=== PATIENT | male | born 2000 | race Caucasian/White ===

== ENCOUNTER 2021-06-06 10:12 | Emergency (ER) | payer OTHER ==
[2021-06-06 10:59] LABS: BORDETELLA PARAPERTUSSIS Not Detected (Not Detectd); BORDETELLA PERTUSSIS Not Detected (Not Detectd); CHLAMYDIA PNEUMONIAE Not Detected (Not Detectd); CORONAVIRUS HKU1 Not Detected (Not Detectd); CORONAVIRUS NL63 Not Detected (Not Detectd); CORONAVIRUS OC43 Not Detected (Not Detectd); CORONOAVIRUS 229E Not Detected (Not Detectd); HUMAN METAPNEUMOVIRUS Not Detected (Not Detectd); HUMAN RHINOVIRUS/ENTEROVIRUS Not Detected (Not Detectd); INFLUENZA A Not Detected (Not Detectd); INFLUENZA B Not Detected (Not Detectd); MYCOPLASMA PNEUMONIAE Not Detected (Not Detectd); PARAINFLUENZA VIRUS 1 Not Detected (Not Detectd); PARAINFLUENZA VIRUS 2 Not Detected (Not Detectd); PARAINFLUENZA VIRUS 3 Not Detected (Not Detectd); PARAINFLUENZA VIRUS 4 Not Detected (Not Detectd); RESPIRATORY SYNCYTIAL VIRUS Not Detected (Not Detectd)
[2021-06-06 12:22] LABS: SARS-CoV-2 NOT DETECTED (Not Detectd)
== END 2021-06-06 11:30 | disposition home or self-care (01) ==
LOC: ER1 10:12
PROVIDERS: Nurse Practitioner
DX: J06.9 Acute upper respiratory infection, unspecified (principal); F17.290 Nicotine dependence, other tobacco product, uncomplicated; Z88.8 Allergy status to other drugs, medicaments and biological substances; Z20.822 Contact with and (suspected) exposure to COVID-19
CPT/HCPCS: 87633; 99284

== ENCOUNTER 2021-06-16 10:48 | Emergency (ER) | payer OTHER ==
[2021-06-16] MEDS ORDERED: BACITRACIN28.4 GM TP (15:17)
[2021-06-16] MEDS ORDERED: CYCLOBENZAPRINE10 MG PO (15:17)
== END 2021-06-16 15:30 | disposition home or self-care (01) ==
LOC: ER1 10:48
DX: S51.821A Laceration with foreign body of right forearm, initial encounter (principal); S39.012A Strain of muscle, fascia and tendon of lower back, initial encounter; F17.290 Nicotine dependence, other tobacco product, uncomplicated; V49.40XA Driver injured in collision with unspecified motor vehicles in traffic accident, initial encounter; Y92.410 Unspecified street and highway as the place of occurrence of the external cause
CPT/HCPCS: 12001; 72100; 73090; 99283

== ENCOUNTER 2021-08-21 10:21 | Emergency (ER) | payer OTHER ==
[~2021-08-21 10:21] MED LIST: BACITRACIN28.4 GM TP; CYCLOBENZAPRINE10 MG PO
[2021-08-21 11:13] LABS: HEMOGLOBIN 15.4 gm/dl (14.0-17.5); RED BLOOD COUNT 5.53 M/UL (4.20-5.50); WHITE BLOOD COUNT 23.4 K/UL (4.5-11.0)
[2021-08-21 11:31] LABS: BUN/CREATININE RATIO 11 (0-10)
[2021-08-21] MEDS ORDERED: FLAGYL 250 MG250 MG PO (15:44)
[2021-08-21] MEDS ORDERED: CIPRO250 MG PO (15:44)
== END 2021-08-21 16:29 | disposition home or self-care (01) ==
LOC: ER1 10:21 → CDU 15:22 → M/S 08-22 00:58 → CDU 08-22 01:14
PROVIDERS: Emergency Medicine
DX: R10.9 Unspecified abdominal pain (principal); D72.829 Elevated white blood cell count, unspecified; F17.200 Nicotine dependence, unspecified, uncomplicated
CPT/HCPCS: 80053; 81001; 83690; 85025; 96374; 96375; 99285; J2270; J2405; J2543; Q9967

== ENCOUNTER 2021-08-21 20:58 | Inpatient (IN) | payer OTHER ==
[~2021-08-21] VITALS: Ht 193 cm; Wt 83.9 kg
[~2021-08-21 20:58] MED LIST changes: +CIPRO250 MG PO; +FLAGYL 250 MG250 MG PO
[2021-08-22 01:24] LABS: BUN/CREATININE RATIO 13 (0-10)
[2021-08-22 02:24] LABS: HEMOGLOBIN 14.1 gm/dl (14.0-17.5)
[2021-08-22 02:28] LABS: RED BLOOD COUNT 4.8 M/UL (4.20-5.50); WHITE BLOOD COUNT 14.6 K/UL (4.5-11.0)
[2021-08-22 02:43] LABS: BUN/CREATININE RATIO 13 (0-10)
[2021-08-23 05:06] LABS: HEMOGLOBIN 13.5 gm/dl (14.0-17.5); RED BLOOD COUNT 4.64 M/UL (4.20-5.50); WHITE BLOOD COUNT 13.3 K/UL (4.5-11.0)
[2021-08-23 05:46] LABS: BUN/CREATININE RATIO 9 (0-10)
[2021-08-23] MEDS ORDERED: METRONIDAZOLE250 MG PO (10:08)
[2021-08-23] MEDS ORDERED: LEVOFLOXACIN500 MG PO (10:08)
--- NOTE | 2021-08-23 12:22 | NUR ---
UPON DISCHARGE WITH THE PT, EDUCATED THE PT ON THE DANGERS OF ALCOHOL WITH METRONIDAZOLE AND THAT THE PT SHOULD NOT TAKE THE MEDICATION FOR AT LEAST 3 DAYS AFTER HE COMPLETES THE ANTIBIOTIC. PT VOCALIZED THAT HE WOULD NOT BE TAKING THIS MEDICATION AND WAS PLANNING ON GOING HOME TO DRINK. EXPLAINED TO THE PT TO RETURN TO THE HOSPITAL WITH ANY ABDOMINAL PAIN AND TO REFRAIN FROM DRINKING FOR THREE DAYS.
== END 2021-08-23 12:33 | disposition home or self-care (01) | DRG 392 ==
LOC: ER1 20:58 → M/S 22:50 → CDU 22:50 → M/S 08-22 01:14
PROVIDERS: Physician Assistant; ADMIT Internal Medicine
DX: K52.9 Noninfective gastroenteritis and colitis, unspecified (principal); F14.10 Cocaine abuse, uncomplicated; K62.89 Other specified diseases of anus and rectum; Z20.822 Contact with and (suspected) exposure to COVID-19; F17.290 Nicotine dependence, other tobacco product, uncomplicated; D72.829 Elevated white blood cell count, unspecified; Z88.8 Allergy status to other drugs, medicaments and biological substances
CPT/HCPCS: 36415; 71046; 80048; 80053; 81001; 83605; 83690; 85025; 86140; 87040; 87086; 99285; J1956; J2270; J2405; J2543; J7030; U0002

== ENCOUNTER 2021-09-03 10:31 | Emergency (ER) | payer OTHER ==
[~2021-09-03 10:31] MED LIST changes: +LEVOFLOXACIN500 MG PO; +METRONIDAZOLE250 MG PO
[2021-09-03 12:32] LABS: HEMOGLOBIN 15.2 gm/dl (14.0-17.5); RED BLOOD COUNT 5.33 M/UL (4.20-5.50); WHITE BLOOD COUNT 20.2 K/UL (4.5-11.0)
[2021-09-03 12:58] LABS: BUN/CREATININE RATIO 9 (0-10)
[2021-09-03] MEDS ORDERED: MIRALAX 119 GR119 GM PO (14:26)
[2021-09-03] MEDS ORDERED: AUGMENTIN 875-1 EACH PO (14:26)
== END 2021-09-03 15:07 | disposition home or self-care (01) ==
LOC: ER1 10:31
PROVIDERS: Physician Assistant
DX: K59.00 Constipation, unspecified (principal); D72.829 Elevated white blood cell count, unspecified; F17.200 Nicotine dependence, unspecified, uncomplicated; Z20.822 Contact with and (suspected) exposure to COVID-19
CPT/HCPCS: 80053; 81001; 83605; 85025; 96374; 96375; 99284; J0696; J1885; J2405; Q9967; U0002